=== PATIENT | female | born 1995 | race African-American/Black ===

== ENCOUNTER 2019-01-09 09:31 | Emergency (ER) | payer MEDICAID ==
[~2019-01-09] VITALS: Ht 162.6 cm; Wt 72.6 kg
[2019-01-09 09:41] VITALS: BP 99/64
[2019-01-09] MEDS ORDERED: MELO7.5T29 PO (09:48)
[2019-01-09] MEDS ORDERED: AMOX500T PO (09:48)
[2019-01-09] MEDS ORDERED: PRED50TA PO (09:48)
--- NOTE | 2019-01-09 09:48 | PHYS DOC ---
Past History Past Medical History: No Pertinent History Past Surgical History: No Surgical History Smoking: Non-smoker Alcohol Use: None Drug Use: None Adult General Chief Complaint Chief Complaint: SORE THROAT HPI HPI Patient is a 23-year-old female presents with a sore throat for the past 2 days, getting worse over time. Increased pain with swallowing. No difficulty breathing. He fevers, no home temperature has been taken. Symptoms are moderate in intensity. She has some diffuse body aches. No abdominal pain. Nothing seems to make the symptoms better or worse. Patient has previous history of strep throat and this feels like that episode.[] Review of Systems Review of Systems Constitutional: Denies fever or chills [] Eyes: Denies change in visual acuity, redness, or eye pain [] HENT: Denies nasal congestion, see history of present illness[] Respiratory: Denies cough or shortness of breath [] Cardiovascular: No chest pain or palpitations[] GI: Denies abdominal pain, nausea, vomiting, bloody stools or diarrhea [] : Denies dysuria or hematuria [] Musculoskeletal: Denies back pain or specific joint pain, diffuse myalgias as noted in history of present illness [] Integument: Denies rash or skin lesions [] Neurologic: Denies headache, focal weakness or sensory changes [] Endocrine: Denies polyuria or polydipsia [] All other systems were reviewed and found to be within normal limits, except as documented in this note. Physical Exam Physical Exam Constitutional: Well developed, well nourished, no acute distress, non-toxic appearance. [] HENT: Normocephalic, atraumatic, bilateral external ears normal, oropharynx moist, to dates are present on bilateral tonsils, enlarged tonsils bilaterally symmetric, uvula midline, no trismus, nose normal. [] Eyes: PERRLA, EOMI, conjunctiva normal, no discharge. [] Neck: Normal range of motion, no tenderness, supple, no stridor. Anterior chain cervical Lymphadenopathy is present bilaterally[] Cardiovascular:Heart rate regular rhythm, no murmur [] Lungs & Thorax: Bilateral breath sounds clear to auscultation [] Abdomen: Bowel sounds normal, soft, no tenderness, no masses, no pulsatile masses. No splenomegaly [] Skin: Warm, dry, no erythema, no rash. [] Back: No tenderness, no CVA tenderness. [] Extremities: No tenderness, no cyanosis, no clubbing, ROM intact, no edema. [] Neurologic: Alert and oriented X 3, normal motor function, normal sensory function, no focal deficits noted. [] Psychologic: Affect normal, judgement normal, mood normal. [] EKG EKG [] Radiology/Procedures Radiology/Procedures [] Course & Med Decision Making Course & Med Decision Making Pertinent Labs and Imaging studies reviewed. (See chart for details) ED course: Patient arrived, was placed in bed, and tolerated exam well. Findings were discussed with the patient who voiced understanding. All questions were answered. She was discharged in improved condition. Medical decision making: Patient appears to have an exudative pharyngitis. We'll cover with antibiotics. No evidence meningitis, encephalitis, retropharyngeal abscess, nor peritonsillar abscess. No evidence of sepsis. No evidence of oral intake intolerance.[] Dragon Disclaimer Dragon Disclaimer This electronic medical record was generated, in whole or in part, using a voice recognition dictation system. Departure Departure: Impression: Primary Impression: Exudative pharyngitis Disposition: HOME, SELF-CARE Condition: IMPROVED Referrals: [facility] (PCP) Patient Instructions: Viral and Bacterial Pharyngitis Additional Instructions: Follow-up with your regular doctor in 2 days. If you do not have regular doctor list of local clinics will be provided for you. Drink plenty of fluids. Take the medication as prescribed. Return to the ER if worsening pain, difficulty sw allowing, or any other concerns Scripts Meloxicam (MELOXICAM) 7.5 Mg Tablet 7.5 MG PO DAILY for PAIN, #20 TAB Prov: RAMESH HUTCHINSON DO 01/09/19 Prednisone (PREDNISONE) 50 Mg Tablet 1 TAB PO DAILY for INFLAMMATION, #5 TAB Prov: RAMESH HUTCHINSON DO 01/09/19 Amoxicillin (AMOXICILLIN) 500 Mg Tablet 500 MG PO TID for pharyngitis for 10 Days, #30 TAB Prov: RAMESH HUTCHINSON DO 01/09/19 RAMESH HUTCHINSON DO Jan 09, 2019 09:48
== END 2019-01-09 10:00 | disposition home or self-care (01) ==
LOC: ER 09:31
DX: J02.9 Acute pharyngitis, unspecified (principal)
CPT/HCPCS: 99283